=== PATIENT | male | born 1995 | race African-American/Black ===

== ENCOUNTER 2016-12-06 18:13 | Emergency (ER) | payer SELFPAY ==
[~2016-12-06] VITALS: Ht 167.6 cm; Wt 80.5 kg
[2016-12-06 18:40] VITALS: BP 110/65
== END 2016-12-06 20:01 | disposition left against medical advice (07) ==
LOC: EME 18:13
DX: R51 Headache (principal); R11.2 Nausea with vomiting, unspecified; Z53.21 Procedure and treatment not carried out due to patient leaving prior to being seen by health care provider

== ENCOUNTER 2017-03-09 14:32 | Emergency (ER) | payer OTHER ==
[~2017-03-09] VITALS: Ht 167.6 cm; Wt 82.3 kg
[2017-03-09 16:10] VITALS: BP 134/74
[2017-03-10 12:38] LABS: CHLAMYDIA TRACHOMATIS NEGATIVE; NEISSERIA GONORRHOEAE NEGATIVE
== END 2017-03-09 16:11 | disposition home or self-care (01) ==
LOC: EME 14:32
DX: A74.9 Chlamydial infection, unspecified (principal); F17.200 Nicotine dependence, unspecified, uncomplicated
CPT/HCPCS: 81003; 87491; 87591; 99281; 99283; J0696

== ENCOUNTER 2017-04-13 12:36 | Emergency (ER) | payer OTHER ==
[~2017-04-13] VITALS: Ht 167.6 cm; Wt 84.2 kg
[2017-04-13 13:27] VITALS: BP 132/75
== END 2017-04-13 14:49 | disposition home or self-care (01) ==
LOC: RME 12:36 → EME 12:36 → RME 14:49
DX: G43.909 Migraine, unspecified, not intractable, without status migrainosus (principal); J45.909 Unspecified asthma, uncomplicated; F17.200 Nicotine dependence, unspecified, uncomplicated
CPT/HCPCS: 99281; 99284; J1885; J2765

== ENCOUNTER 2017-11-24 17:53 | Emergency (ER) | payer OTHER ==
[~2017-11-24] VITALS: Ht 165.1 cm; Wt 93.0 kg
[2017-11-24 18:11] VITALS: BP 131/87
== END 2017-11-24 18:09 | disposition left against medical advice (07) ==
LOC: EME 17:53
DX: F14.10 Cocaine abuse, uncomplicated (principal); Z53.21 Procedure and treatment not carried out due to patient leaving prior to being seen by health care provider
CPT/HCPCS: 99281